=== PATIENT | male | born 1970 | race Caucasian/White ===

== ENCOUNTER → 2019-06-05 | Outpatient (CLI) | payer OTHER | LOC: M SLEEP 19:42 | PROVIDERS: ATTEND Nurse Practitioner Family | DX: R06.83 Snoring (principal) ==

== ENCOUNTER → 2019-07-15 | Outpatient (CLI) | payer OTHER | LOC: M SLEEP 19:39 | PROVIDERS: ATTEND Nurse Practitioner Family | DX: G47.33 Obstructive sleep apnea (adult) (pediatric) (principal) ==

== ENCOUNTER 2019-09-03 12:16 | Emergency (ER) | payer OTHER ==
[~2019-09-03] VITALS: Ht 172.7 cm; Wt 95.1 kg
[2019-09-03] MEDS ORDERED: SIMV40TA20 (12:30)
[2019-09-03] MEDS ORDERED: CHAN1PAK13 (12:30)
[2019-09-03] MEDS ORDERED: ESOM40CA35 (12:30)
[2019-09-03] MEDS ORDERED: PARO20TA3 (12:30)
[2019-09-03] MEDS ORDERED: ASPIRIN 81 MG CHEW TABLET PO ONE (12:45)
[2019-09-03 13:23] LABS: BASO # 0.1 10^3/uL (0.0-0.2); BASO % 0.7 % (0.0-1.0); EOS # 0.6 10^3/uL (0.0-0.5); HEMATOCRIT 41.6 % (42.0-52.0); HEMOGLOBIN 14.4 g/dl (13.5-17.5); LYMPH # 2.4 10^3/uL (1.5-5.0); LYMPH % 33.9 % (24.0-44.0); MEAN CORPUSCULAR HEMOGLOBIN 29.8 pg (27.0-33.0); MEAN CORPUSCULAR HGB CONC 34.6 g/dl (32.0-36.5); MEAN CORPUSCULAR VOLUME 86.1 fl (80.0-96.0); MONO # 0.8 10^3/uL (0.0-0.8); MONO % 11.4 % (0.0-5.0); NEUTROPHILS # 3.2 10^3/uL (1.5-8.5); NEUTROPHILS % 44.6 % (36.0-66.0); PLATELET COUNT, AUTOMATED 270 10^3/uL (150-450); RED BLOOD COUNT 4.83 10^6/uL (4.30-6.10); WHITE BLOOD COUNT 7.1 10^3/uL (4.0-10.0)
--- NOTE | 2019-09-03 13:46 | REP ---
CHEST, SINGLE VIEW: There is no evidence of acute infiltrate. No pleural effusion is seen. The heart is normal in size. The mediastinal silhouette is unremarkable. The visualized osseous structures are intact. IMPRESSION: No acute pulmonary disease. Electronically Signed by Venkat Pedro MD 09/03/2019 04:11 P
[2019-09-03 13:47] LABS: BLOOD UREA NITROGEN 18 MG/DL (7-18); CALCIUM LEVEL 9.7 MG/DL (8.5-10.1); CARBON DIOXIDE LEVEL 28 MEQ/L (21-32); CHLORIDE LEVEL 104 MEQ/L (98-107); CK-MB VALUE MASS 3.2 NG/ML (<3.6); CPK CREATINE PHOSPHOKINASE 237 U/L (39-308); CREATININE FOR GFR 1.08 MG/DL (0.70-1.30); GLOMERULAR FILTRATION RATE > 60.0 (>56); GLUCOSE, FASTING 152 MG/DL (70-100); MB/CK RELATIVE INDEX 1.35 (< OR =4); POTASSIUM SERUM 4.1 MEQ/L (3.5-5.1); SODIUM LEVEL 138 MEQ/L (136-145); TROPONIN I < 0.02 NG/ML (< 0.10)
[2019-09-03 16:40] LABS: CK-MB VALUE MASS 3.1 NG/ML (<3.6); CPK CREATINE PHOSPHOKINASE 223 U/L (39-308); MB/CK RELATIVE INDEX 1.39 (< OR =4); TROPONIN I < 0.02 NG/ML (< 0.10)
[2019-09-03 17:15] VITALS: BP 126/92
--- NOTE | 2019-09-04 06:52 | ECGEPIP ---
[facility] - ED Test Date: 2019-09-03 Pat Name: PAULO SANTANA Department: Room: - Gender: Male [employer]: keyshawn : 1970 Requested By: Walt Bailey Order Number: [id number] Reading MD: Walt Arcos Measurements Intervals [place] Rate: 66 P: 24 SD: 172 QRS: 57 QRSD: 114 T: 40 QT: 379 QTc: 400 Interpretive Statements SINUS RHYTHM MODERATE INTRAVENTRICULAR CONDUCTION DELAY NONSPECIFIC ST & T-WAVE ABNORMALITY NO PRIORS FOR COMPARISON Electronically Signed on 09-04-2019 6:52:35 EST by Walt Arcos
--- NOTE | 2019-09-04 07:04 | ECGEPIP ---
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
== END 2019-09-03 17:45 | disposition home or self-care (01) ==
LOC: M ED 12:16
DX: R07.9 Chest pain, unspecified (principal); R06.02 Shortness of breath; G47.33 Obstructive sleep apnea (adult) (pediatric); Z79.899 Other long term (current) drug therapy

== ENCOUNTER → 2022-12-12 | Outpatient (REF) | payer OTHER ==
[~2022-12-12] MED LIST: CHAN1PAK13; ESOM40CA35; PARO20TA3; SIMV40TA20
== END ==
LOC: M LAB REF 17:14
PROVIDERS: ATTEND Internal Medicine
DX: Z51.81 Encounter for therapeutic drug level monitoring (principal)

== ENCOUNTER → 2023-04-25 | Outpatient (CLI) | payer OTHER, SELFPAY | LOC: M RAD 07:55 | PROVIDERS: ATTEND Internal Medicine | DX: Z87.891 Personal history of nicotine dependence (principal) ==

== ENCOUNTER 2023-07-30 00:47 | Emergency (ER) | payer OTHER ==
[~2023-07-30] VITALS: Ht 172.7 cm; Wt 90.2 kg
[2023-07-30 00:47] VITALS: BP 197/107; TEMP 96.9; O2SAT 100
[2023-07-30] MEDS ORDERED: CYCL5TAB (00:54)
[2023-07-30] MEDS ORDERED: IBUP-1022 (00:54)
== END 2023-07-30 04:21 | disposition left against medical advice (07) ==
LOC: M ED 00:47
DX: Z53.21 Procedure and treatment not carried out due to patient leaving prior to being seen by health care provider (principal)

== ENCOUNTER → 2024-11-03 | Outpatient (CLI) | payer OTHER ==
[~2024-11-03] MED LIST changes: +CYCL5TAB4; +IBUP-1022
== END ==
LOC: M RAD 15:15
PROVIDERS: ATTEND Internal Medicine
DX: Z87.891 Personal history of nicotine dependence (principal)